=== PATIENT | male | born 1990 | race American Indian/Alaskan Native ===

== ENCOUNTER 2017-01-13 05:37 | Emergency (ER) | payer OTHER ==
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
[2017-01-13] MEDS ORDERED: MOTRIN PO ONE (08:11)
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
[2017-01-13 09:25] VITALS: BP 135/91
== END 2017-01-13 10:18 | disposition home or self-care (01) ==
LOC: ED 05:37
DX: M54.5 Low back pain (principal); V49.59XA Passenger injured in collision with other motor vehicles in traffic accident, initial encounter; Y92.488 Other paved roadways as the place of occurrence of the external cause; Y93.89 Activity, other specified; Y99.8 Other external cause status
CPT/HCPCS: 72100

== ENCOUNTER 2017-05-13 06:30 | Emergency (ER) | payer BC, OTHER ==
[2017-05-13] MEDS ORDERED: MOTRIN ONE (06:59)
[2017-05-13] MEDS ORDERED: MOTRIN PO ONE (06:59)
[2017-05-13] MEDS ORDERED: CATAPRES PO ONE (08:30)
--- NOTE | 2017-05-13 08:40 | Emergency Department Report ---
<AUTUMNJOSIE P - Last Filed: 05/13/17 09:15> ED ENT HPI - General Chief complaint: Dental/Oral Stated complaint: TOOTHACHE - Related Data Previous Rx's Medication Instructions Recorded Last Taken Type Doxycycline [Vibramycin CAP] 100 mg PO Q12HR #20 capsule 01/07/16 Unknown Rx Cyclobenzaprine [Flexeril] 10 mg PO TID PRN #12 tablet 01/13/17 Unknown Rx Ibuprofen [Motrin] 800 mg PO Q8HR PRN #25 tablet 01/13/17 Unknown Rx Amlodipine Besylate [Norvasc] 5 mg PO DAILY #30 tablet 05/13/17 Unknown Rx Clindamycin [Clindamycin CAP] 300 mg PO Q6H #40 capsule 05/13/17 Unknown Rx HYDROcodone/APAP 5-325 [[place] 1 each PO Q6HR PRN #18 tablet 05/13/17 Unknown Rx 5/325] Allergies Allergy/AdvReac Type Severity Reaction Status Date / Time No Known Allergies Allergy Verified 01/07/16 19:53 ED Dental HPI - General Chief complaint: Dental/Oral Stated complaint: TOOTHACHE - Related Data Previous Rx's Medication Instructions Recorded Last Taken Type Doxycycline [Vibramycin CAP] 100 mg PO Q12HR #20 capsule 01/07/16 Unknown Rx Cyclobenzaprine [Flexeril] 10 mg PO TID PRN #12 tablet 01/13/17 Unknown Rx Ibuprofen [Motrin] 800 mg PO Q8HR PRN #25 tablet 01/13/17 Unknown Rx Amlodipine Besylate [Norvasc] 5 mg PO DAILY #30 tablet 05/13/17 Unknown Rx Clindamycin [Clindamycin CAP] 300 mg PO Q6H #40 capsule 05/13/17 Unknown Rx HYDROcodone/APAP 5-325 [[place] 1 each PO Q6HR PRN #18 tablet 05/13/17 Unknown Rx 5/325] Allergies Allergy/AdvReac Type Severity Reaction Status Date / Time No Known Allergies Allergy Verified 01/07/16 19:53 ED Review of Systems ROS: Stated complaint: TOOTHACHE Other details as noted in HPI ED Past Medical Hx - Medications Home Medications: Home Medications Medication Instructions Recorded Confirmed Last Taken Type Doxycycline [Vibramycin CAP] 100 mg PO Q12HR #20 capsule 01/07/16 Unknown Rx Cyclobenzaprine [Flexeril] 10 mg PO TID PRN #12 tablet 01/13/17 Unknown Rx Ibuprofen [Motrin] 800 mg PO Q8HR PRN #25 tablet 01/13/17 Unknown Rx Amlodipine Besylate [Norvasc] 5 mg PO DAILY #30 tablet 05/13/17 Unknown Rx Clindamycin [Clindamycin CAP] 300 mg PO Q6H #40 capsule 05/13/17 Unknown Rx HYDROcodone/APAP 5-325 [[place] 1 each PO Q6HR PRN #18 tablet 05/13/17 Unknown Rx 5/325] ED Course Vital Signs 05/13/17 05/13/17 05/13/17 06:50 08:45 08:49 Temperature 98.5 F Pulse Rate 101 H 88 Respiratory 18 Rate Blood Pressure 160/100 146/92 146/92 O2 Sat by Pulse 100 Oximetry 05/13/17 05/13/17 09:14 09:34 Temperature Pulse Rate 92 H Respiratory 16 Rate Blood Pressure 145/86 O2 Sat by Pulse 100 Oximetry Critical care attestation.: If time is entered above; I have spent that time in minutes in the direct care of this critically ill patient, excluding procedure time. ED Disposition Clinical Impression: Tooth pain Pharyngitis Qualifiers: Pharyngitis/tonsillitis etiology: unspecified etiology Qualified Code(s): J02.9 - Acute pharyngitis, unspecified Tooth fracture Qualifiers: Encounter type: initial encounter Fracture type: closed Qualified Code(s): S02.5XXA - Fracture of tooth (traumatic), initial encounter for closed fracture Disposition: TO HOME OR SELFCARE Condition: Stable Instructions: Clindamycin (By mouth), Toothache (ED) Additional Instructions: Please take probiotic with the antiibitoc. Please be advised that pain medication may make you drowsy, do not take with driving or operating heavy amchinery. It is crucial that you follow-up with ENT and dentist within 3-5 days for your issue as it can progress further if not treated. Please also follow-up with PCP regarding your elevated BP at this time. Return to the ER immediately if your presenting symptoms acutely progress or worsen. Do not take more than the prescribed dose of [place] pain medicine, or combine or take the pain medicine prescribed to you today with other pain medicine, sleeping medicine or other sedatives, ie flexeril, or with alcohol, as doing so may cause central nervous system sedation and respiratory depression, and potentially cause you to stop breathing and . Additionally, do not drive a vehicle, operate heavy machinery, or engage in any activity that would cause harm to yourself or others after taking the pain medicine prescribed to you. Prescriptions: Amlodipine Besylate [Norvasc] 5 mg PO DAILY #30 tablet Clindamycin [Clindamycin CAP] 300 mg PO Q6H #40 capsule HYDROcodone/APAP 5-325 [[place] 5/325] 1 each PO Q6HR PRN #18 tablet PRN Reason: Pain Referrals: LETICIA LARSON MD [Primary Care Provider] - 3-5 Days FRANSICO HIGGINS MD [Staff Physician] - 3-5 Days [facility] [Outside] - 3-5 Days [facility] [Outside] - 3-5 Days Forms: Work/School Release Form(ED) <JENNIFER CHAVEZ - Last Filed: 05/14/17 11:23> ED ENT HPI - General Source: patient Mode of arrival: Ambulatory Limitations: No Limitations - History of Present Illness Initial comments: 27 y/o M nontoxic in appearance presents to the ER today complaining of throat pain and tooth ache. Pt was seen by a dentist on the 11 of May and was told that he will need to have some teeth pulled. Pt dentist did not prescribe any antibiotics or pain pills at that time. He states that it hurts to swallow , he denies any difficulty breathing, he states that he is able to eat, drink, urinate, and defecating without any issues. He states that the pain increases with touch and with swallowing. He denies any fever, chills, chest pain, neck pain/stiffness, SOB, nausea, or vomiting. DA FLEMING complaint: tooth pain, sore throat, difficulty swallowing -: days(s) (3) Location: throat, tooth # 1 - redness, fracture and mild swelling Severity scale (0 -10): 10 Quality: constant Improves with: none Worsens with: swallowing Context- Dental: poor dental care, other (fractured teeth) Associated Symptoms: toothache, pain with swallowing, sore throat ED Dental HPI - General Source: patient Mode of arrival: Ambulatory Limitations: No Limitations ED Review of Systems Constitutional: denies: chills, fever Eyes: denies: eye pain, eye discharge, vision change ENT: throat pain, dental pain Respiratory: denies: cough, shortness of breath, wheezing Cardiovascular: denies: chest pain, palpitations Endocrine: no symptoms reported Gastrointestinal: denies: abdominal pain, nausea, diarrhea Genitourinary: denies: urgency, dysuria Musculoskeletal: denies: back pain, joint swelling, arthralgia Skin: denies: rash, lesions Neurological: denies: headache, weakness, paresthesias Psychiatric: denies: anxiety, depression Hematological/Lymphatic: denies: easy bleeding, easy bruising ED Past Medical Hx - Past Medical History Previous Medical History?: No Additional medical history: BACK PAINS - Surgical History Past Surgical History?: No - Social History Smoking Status: Current Every Day Smoker Substance Use Type: None ED Physical Exam - General Limitations: No Limitations General appearance: alert, in no apparent distress - Head Head exam: Present: atraumatic, normocephalic, normal inspection - Eye Eye exam: Present: normal appearance, PERRL, EOMI - ENT ENT exam: Present: other (there was evidence of poor dentition, and fractured teeth, around the area it appeared to he early formation of cellulitis, ttp, the right posterior pharynx was inflamed, no evidence or peritonsillar abscess or gum abscess at this time, no drooling, no muffled voice, airway was patent at this time, good air exchange was evident) - Expanded ENT Exam Expanded Mouth exam: Present: normal external inspection Teeth exam: Present: fractured tooth #, dental tenderness # 1 - Fractured, Dental Tenderness Throat exam: Positive: tonsillar erythema (at the right posterior pharynx) - Neck Neck exam: Present: full ROM, other (mild swelling noted at the right aspect of the neck, ROM of the neck was normal, no pain with flex or extension- no signs of menigitis) - Respiratory Respiratory exam: Present: normal lung sounds bilaterally. Absent: respiratory distress - Cardiovascular Cardiovascular Exam: Present: regular rate, normal rhythm. Absent: systolic murmur, diastolic murmur, rubs, gallop - Extremities Exam Extremities exam: Present: normal inspection - Back Exam Back exam: Present: normal inspection - Neurological Exam Neurological exam: Present: alert, oriented X3, CN II-XII intact, normal gait - Expanded Neurological Exam Expanded Patient oriented to: Present: person, place, time Speech: Present: fluid speech Cranial nerves: EOM's Intact: Normal Best Eye Response ([place]): (4) open spontaneously Best Motor Response ([place]): (6) obeys commands Best Verbal Response ([place]): (5) oriented Arnoldo Total: 15 - Psychiatric Psychiatric exam: Present: normal affect - Skin Skin exam: Present: warm, dry, intact, normal color. Absent: rash ED Medical Decision Making - Medical Decision Making Pt was examined by myself and Dr. Borden and the treatment plan was discussed with him at this time and he agrees with plan of care. Pt was given 0.1 mg clondine here in the ed at his BP levels were 160/100, ther clonidine brought his BP down to 146/92, there was then discharged home with Norvasc 5 mg daily for the next 3 months with close PCP follow-up. Pt was given ibuprofen 800 mg here in the ED for the pain. it appeared that there is a possbility of cellulitis forming on the right upper aspect of the mouth. Therefore, pt was discharged home with clindamycin 300 mg q6 hours for the next 10days along with Culver for the pain. He was educated on the importance of close dental/ENT follow-up. Pt was alert and oriented, no resp distress, speaking in full sentences upon discharge. ED Disposition Is pt being admited?: No Does the pt Need Aspirin: No
[2017-05-13 09:34] VITALS: BP 145/86
== END 2017-05-13 09:42 | disposition home or self-care (01) ==
LOC: ED 06:30
DX: S02.5XXA Fracture of tooth (traumatic), initial encounter for closed fracture (principal); J02.9 Acute pharyngitis, unspecified; X58.XXXA Exposure to other specified factors, initial encounter; Y93.89 Activity, other specified; Y92.89 Other specified places as the place of occurrence of the external cause; Y99.8 Other external cause status
CPT/HCPCS: 99282

== ENCOUNTER 2018-07-12 06:52 | Emergency (ER) | payer BC ==
--- NOTE | 2018-07-12 08:38 | Emergency Department Report ---
ED Male HPI - General Chief complaint: Skin Rash Stated complaint: RASH Time Seen by Provider: 07/12/18 08:14 Source: patient Mode of arrival: Ambulatory Limitations: No Limitations - History of Present Illness Initial comments: Mr. Mercado is a 28-year-old male who has a rash on his penis and testicles. No previous history of similar rash. Denies discharge. Denies fever. Denies abdominal pain. MD Complaint: other (rash) -: Gradual, days(s) (2) Location: penis, right testicle, left testicle Severity: mild Improves with: none Worsens with: none - Related Data Previous Rx's Medication Instructions Recorded Last Taken Type Doxycycline [Vibramycin CAP] 100 mg PO Q12HR #20 capsule 01/07/16 Unknown Rx Cyclobenzaprine [Flexeril] 10 mg PO TID PRN #12 tablet 01/13/17 Unknown Rx Ibuprofen [Motrin] 800 mg PO Q8HR PRN #25 tablet 01/13/17 Unknown Rx Amlodipine Besylate [Norvasc] 5 mg PO DAILY #30 tablet 05/13/17 Unknown Rx Clindamycin [Clindamycin CAP] 300 mg PO Q6H #40 capsule 05/13/17 Unknown Rx HYDROcodone/APAP 5-325 [[place] 1 each PO Q6HR PRN #18 tablet 05/13/17 Unknown Rx 5/325] Hydrocortisone [Anusol-Hc] 30 gm RC BID #1 cream..g. 04/17/18 Unknown Rx Pramoxine HCl [Proctofoam] 15 gm TP TID #1 foam 04/17/18 Unknown Rx Acyclovir [Zovirax] 400 mg PO TID 7 Days #21 tablet 07/12/18 Unknown Rx Allergies Allergy/AdvReac Type Severity Reaction Status Date / Time No Known Allergies Allergy Verified 01/07/16 19:53 ED Review of Systems ROS: Stated complaint: RASH Other details as noted in HPI ED Past Medical Hx - Past Medical History Previous Medical History?: Yes Additional medical history: BACK PAINS, 3 Herniated Disc - Surgical History Past Surgical History?: No - Social History Smoking Status: Current Every Day Smoker Substance Use Type: Alcohol - Medications Home Medications: Home Medications Medication Instructions Recorded Confirmed Last Taken Type Doxycycline [Vibramycin CAP] 100 mg PO Q12HR #20 capsule 01/07/16 Unknown Rx Cyclobenzaprine [Flexeril] 10 mg PO TID PRN #12 tablet 01/13/17 Unknown Rx Ibuprofen [Motrin] 800 mg PO Q8HR PRN #25 tablet 01/13/17 Unknown Rx Amlodipine Besylate [Norvasc] 5 mg PO DAILY #30 tablet 05/13/17 Unknown Rx Clindamycin [Clindamycin CAP] 300 mg PO Q6H #40 capsule 05/13/17 Unknown Rx HYDROcodone/APAP 5-325 [[place] 1 each PO Q6HR PRN #18 tablet 05/13/17 Unknown Rx 5/325] Hydrocortisone [Anusol-Hc] 30 gm RC BID #1 cream..g. 04/17/18 Unknown Rx Pramoxine HCl [Proctofoam] 15 gm TP TID #1 foam 04/17/18 Unknown Rx Acyclovir [Zovirax] 400 mg PO TID 7 Days #21 tablet 07/12/18 Unknown Rx ED Physical Exam - General Limitations: No Limitations General appearance: alert, in no apparent distress - Head Head exam: Present: atraumatic, normocephalic - Eye Eye exam: Present: normal appearance - ENT ENT exam: Present: mucous membranes moist - Neck Neck exam: Present: normal inspection, full ROM - Respiratory Respiratory exam: Absent: respiratory distress - exam: Present: other (vesicular rash hypopigmented ulcers 1 cm in size involving shaft and scrotum) - Extremities Exam Extremities exam: Present: normal inspection, full ROM - Neurological Exam Neurological exam: Present: alert, oriented X3 - Psychiatric Psychiatric exam: Present: normal affect, normal mood - Skin Skin exam: Present: warm, dry, intact, normal color ED Course Vital Signs 07/12/18 07:16 Temperature 99.1 F Pulse Rate 84 Respiratory 16 Rate Blood Pressure 149/94 O2 Sat by Pulse 100 Oximetry ED Medical Decision Making - Medical Decision Making Clinical impression: Genital herpes, I provided patient verbal and written educa tion. Also provided prescription for acyclovir Critical care attestation.: If time is entered above; I have spent that time in minutes in the direct care of this critically ill patient, excluding procedure time. ED Disposition Clinical Impression: Genital herpes Disposition: DC-01 TO HOME OR SELFCARE Is pt being admited?: No Does the pt Need Aspirin: No Condition: Stable Instructions: Genital Herpes Simplex (ED) Prescriptions: Acyclovir [Zovirax] 400 mg PO TID 7 Days #21 tablet Referrals: [facility] [Outside] - 3-5 Days Forms: Work/School Release Form(ED)
== END 2018-07-12 09:05 | disposition home or self-care (01) ==
LOC: ED 06:52
CPT/HCPCS: 99282

== ENCOUNTER 2018-07-16 06:55 | Emergency (ER) | payer BC ==
--- NOTE | 2018-07-16 08:38 | Emergency Department Report ---
ED Rash HPI - HPI Chief Complaint: Skin Rash Stated Complaint: RASH Duration: 1 week Location: Other (scrotum) Rash Symptoms: No Itching, No Facial Swelling, No Tongue/Oral Swelling, No Breathing Difficulties, No Choking Sensation, No Wheezing/Dyspnea, No Peeling, No Blistering, No Fever, No Lightheaded, No Malaise, No Myalgias Severity: mild Other History: 28M PMH eczema p/w c/o rash on right arm and scrotum x1 week. Pt is AAOx3, NAD denies fevers chills nausea vomiting abdominal pain. Denies smoking drinking or drug use. States he has had painless slightly itchy lesions on testicles and right forearm for over one week. Denies any associated fever chills. Denies any substance or medication allergies. States he has palpable lesions overlying scrotum. ED Review of Systems ROS: Stated complaint: RASH Other details as noted in HPI Constitutional: denies: chills, fever Eyes: denies: eye pain, eye discharge, vision change ENT: denies: ear pain, throat pain Respiratory: denies: cough, shortness of breath, wheezing Cardiovascular: denies: chest pain, palpitations Endocrine: no symptoms reported Gastrointestinal: denies: abdominal pain, nausea, diarrhea Genitourinary: denies: urgency, dysuria Musculoskeletal: denies: back pain, joint swelling, arthralgia Skin: as per HPI, lesions. denies: rash Neurological: denies: headache, weakness, paresthesias Psychiatric: denies: anxiety, depression Hematological/Lymphatic: denies: easy bleeding, easy bruising ED Past Medical Hx - Past Medical History Previous Medical History?: Yes Additional medical history: BACK PAINS, 3 Herniated Disc - Surgical History Past Surgical History?: Yes Additional Surgical History: back surgery - Social History Smoking Status: Never Smoker Substance Use Type: None - Medications Home Medications: Home Medications Medication Instructions Recorded Confirmed Last Taken Type Doxycycline [Vibramycin CAP] 100 mg PO Q12HR #20 capsule 01/07/16 Unknown Rx Cyclobenzaprine [Flexeril] 10 mg PO TID PRN #12 tablet 01/13/17 Unknown Rx Ibuprofen [Motrin] 800 mg PO Q8HR PRN #25 tablet 01/13/17 Unknown Rx Amlodipine Besylate [Norvasc] 5 mg PO DAILY #30 tablet 05/13/17 Unknown Rx Clindamycin [Clindamycin CAP] 300 mg PO Q6H #40 capsule 05/13/17 Unknown Rx HYDROcodone/APAP 5-325 [[place] 1 each PO Q6HR PRN #18 tablet 05/13/17 Unknown Rx 5/325] Hydrocortisone [Anusol-Hc] 30 gm RC BID #1 cream..g. 04/17/18 Unknown Rx Pramoxine HCl [Proctofoam] 15 gm TP TID #1 foam 04/17/18 Unknown Rx Acyclovir [Zovirax] 400 mg PO TID 7 Days #21 tablet 07/12/18 Unknown Rx Rash Exam - Exam General: Vital signs noted. No distress. Alert and acting appropriately. HEENT: No Periorbital Edema, No Conjuctival Injection, No Chemosis, No Perioral Edema, No Tongue Edema, No Uvular Edema, No Compromised Airway, No Drooling Lungs: Yes Good Air Exchange (Normal Breath Sounds), No Wheezes, No Ronchi, No Stridor, No Cough, No Labored Respirations, No Retractions, No Use of Accessory Muscles, No Other Abnormal Lung Sounds Heart: Yes Regular, No Murmur Skin: Yes Maculopapular Rash (cauliflower flat wart like lesions overlying scrotum, there are several small wartlike lesions), No Urticarial Rash, No Morbilliform rash, No Bulla(e), No Excoriations, No Weeping, No Tenderness, No Erythema, No Edema, No Encrustations, No Other Other: Positive: Abdomen Normal, Neurologic Normal, Musculoskeletal Normal ED Course Vital Signs 07/16/18 07:09 Temperature 97.8 F Pulse Rate 85 Respiratory 16 Rate Blood Pressure 158/92 [Right] O2 Sat by Pulse 99 Oximetry ED Medical Decision Making - Medical Decision Making A/P: HPV warts on scrotum 1- patient does not have lesions consistent with herpes on clinical exam. 2-patient's lesions are highly consistent with HPV like warts. Patient needs outpatient dermatology follow-up to have lesions biopsied. 3-no overt signs of syphilis infection on exam patient does not have lesions on hands and feet. I educated patient on signs symptoms and transmisability of HPV warts 4-vital signs stable for discharge Critical care attestation.: If time is entered above; I have spent that time in minutes in the direct care of this critically ill patient, excluding procedure time. 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
== END 2018-07-16 08:46 | disposition home or self-care (01) ==
LOC: ED 06:55
DX: A63.0 Anogenital (venereal) warts (principal)
CPT/HCPCS: 99282

== ENCOUNTER 2019-03-12 09:18 | Emergency (ER) | payer BC ==
[2019-03-12 09:36] VITALS: BP 166/106
--- NOTE | 2019-03-12 10:12 | Emergency Department Report ---
Chief Complaint: Urogenital-Male Stated Complaint: GENITAL BURNING Time Seen by Provider: 03/12/19 10:11 - HPI History of Present Illness: several day hx penile dc no testicular pain no fever no abd pain no back pain - ROS Review of Systems: penile discharge clear concerned for sti wants "usual testing" - Exam Vital Signs: Vital Signs 03/12/19 09:23 Temperature 98.9 F Pulse Rate 114 H Respiratory 18 Rate Blood Pressure 166/106 O2 Sat by Pulse 98 Oximetry Physical Exam: alert oriented nad vss no fever HR 90 on exam MSE screening note: Focused history and physical exam performed. Due to findings the following was ordered: Discussed [facility] as better option for pt. He will follow with them Pt chose to leave ER for care No life threat Patient discussed with doctor:: FELISHA REINOSO ED Disposition for MSE Condition: Stable
== END 2019-03-12 13:26 | disposition home or self-care (01) ==
LOC: ED 09:18
DX: R36.9 Urethral discharge, unspecified (principal)
CPT/HCPCS: 99282

== ENCOUNTER 2019-06-18 10:21 | Emergency (ER) | payer SELFPAY ==
[2019-06-18 11:18] VITALS: BP 140/91
--- NOTE | 2019-06-18 11:25 | Emergency Department Report ---
Chief Complaint: Abdominal Pain Stated Complaint: CONSTIPATION 5 DAYS Time Seen by Provider: 06/18/19 11:19 - HPI History of Present Illness: 29 y/o male comes in for constipation feels like his hemorrhoid is flareing up. - Exam Vital Signs: Vital Signs 06/18/19 06/18/19 10:42 11:18 Temperature 99.7 F H Pulse Rate 111 H Respiratory 20 Rate Blood Pressure 140/91 O2 Sat by Pulse 99 Oximetry Vital recheck 99hr and 97% RA Physical Exam: aXo times 3 NAD Abd soft non distended non tender. Ambulatory without difficulties. MSE screening note: Focused history and physical exam performed. Due to findings the following was ordered: 29 y/o male comes in for constipation feels like his hemorrhoid is flareing up. Recommend over the counter laxatives and increase fluids. Handout for Dr. Elliott given. ED Disposition for MSE Condition: Stable
== END 2019-06-18 11:30 | disposition left against medical advice (07) ==
LOC: ED 10:21
DX: K59.00 Constipation, unspecified (principal)
CPT/HCPCS: 99281

== ENCOUNTER 2020-10-15 10:36 | Emergency (ER) | payer BC ==
[2020-10-15 11:18] VITALS: BP 151/97
--- NOTE | 2020-10-15 11:39 | Emergency Department Report ---
Chief Complaint: Urogenital-Male Stated Complaint: BURNING Time Seen by Provider: 10/15/20 11:38 - HPI History of Present Illness: Patient is a 30-year-old male presents emergency room complaints of dysuria and white penile discharge that began yesterday. He states he was sexually active and reports that the condom broke. He denies any fever, nausea, vomiting, diarrhea, urinary retention, hematuria, abdominal pain, pain or swelling in the testicles, lesions or blisters. pmhx bulging disc. No allergies to medications. Vitals are stable ROS: All other systems reviewed and are negative except as in HPI Physical exam: Non toxic appearing, no acute distress atraumatic, normocephalic normal appearance of the eyes, EOMI, no periorbital edema or ecchymosis moist mucus membranes No respiratory distress, no accessory muscle use A&O x4, no focal neuro deficit skin is warm, dry Patient is presenting with symptoms most consistent with uncomplicated male STD This hospital emergency facility does not test or treat for uncomplicated male STDs according to their policy Patient given the appropriate resources Discussed strict return precautions Medical screen examination performed there is no bed to life or limb at this time - Exam Vital Signs: Vital Signs 10/15/20 11:15 Temperature 99.3 F Pulse Rate 86 Respiratory 20 Rate Blood Pressure 151/97 O2 Sat by Pulse 100 Oximetry MSE screening note: Focused history and physical exam performed. ED Disposition for MSE Clinical Impression: Concern about STD in male without diagnosis Disposition: Z-07 MED SCREENING EXAM-LEFT Is pt being admited?: No Does the pt Need Aspirin: No Condition: Stable Instructions: Safe Sex Additional Instructions: please follow up with a clinic or health department to have full std panel. have any partner tested and treated as well. avoid sexual intercourse. return to the emergency room for any new or worsening symptoms. [facility] [employer] Address: [address] [place] [id number] Referrals: [facility] [Outside] - 2-3 Days Time of Disposition: 11:38 Print Language: TURKMEN
== END 2020-10-15 12:00 | disposition left against medical advice (07) ==
LOC: ED 10:36
DX: Z00.8 Encounter for other general examination (principal); Z53.21 Procedure and treatment not carried out due to patient leaving prior to being seen by health care provider